=== PATIENT | female | born 1955 | race Caucasian/White ===

== ENCOUNTER 2016-11-23 12:17 | Day surgery (SDC) | payer OTHER ==
[~2016-11-23] VITALS: Ht 160 cm; Wt 81.7 kg
[~2016-11-23 12:17] MED LIST: 0.9% Sodium Chloride 1,000 ML IV SCH; Sodium Chloride LOK Flush 10 mL Syringe IV PRN; fentaNYL-PF 50 mCg/mL 2 mL Inj IVPUSH PRN
[2016-11-23] MEDS ORDERED: CHOL3000 PO (13:58)
[2016-11-23] MEDS ORDERED: OMEP20CA11 PO (13:58)
[2016-11-23 13:59] VITALS: BP 133/79; PULSE 73; RESP 16; O2SAT 99
--- NOTE | 2016-11-23 15:03 | PCM.ENDEGD ---
EGD Date of Service: Nov 23, 2016 Physician Reji Kothari MD Indication for Procedure Anemia guaiac-positive stools Post Procedure Dx & Findings: Normal upper GI Procedure Esophagogastroduodenoscopy PROCEDURE IN DETAIL: The patient was placed in left lateral decubitus position. Bite block was placed. Scope lubricated, placed in posterior pharynx, passed through the cricopharyngeus and esophagus, slowly advanced the entire length of the gastric pouch, pylorus was identified, scope passed through the pylorus and descending portion of duodenum, withdrawn in the antrum, retroflexed upon itself for view of fundus and cardia. Scope was then withdrawn through the oropharynx. Esophagus was normal without any ulcers or mass erosions. Z line was intact. Stomach appeared normal with normal fundus cardia body antrum and pylorus. There was no ulcer mass or erosions. Stomach was easily inflated and deflated abusing air. Duodenum appeared normal. Patient had normal villous structures without normal appearing folds. I advanced to distal duodenum. Obtained 5 biopsies from distal duodenum to proximal duodenum to rule out celiac disease. Impression Normal upper GI Anemia Recommendation Colonoscopy. Presedation Assessment Risks and Benefits Informed consent was obtained from the patient after all risks and benefits including but not limited to drug reaction, infection, pain, bleeding, perforation, as well as alternatives were discussed. Patient monitoring Continuous pulse oximetry, cardiac monitoring, blood pressure monitoring, IV access, and oxygen at 2L per nasal cannula. Periprocedural Fentanyl: Fentanyl 125mcg Incrementally Midazolam: Midazolam 6mg Incrementally Complications There were no periprocedural complications identified. Post Procedure Plan Post Procedure Recommendations 1. Restrict activities today. 2. Resume normal activities in the morning. 3. Resume medications. 4. GERD behavioral modification: - Avoid fatty, acidic, spicy, large meals - Do not lie down after meals - Do not eat or drink anything for at least 2 1/2 hours before going to bed at night - Discontinue tobacco and alcohol - Decrease or avoid caffeine - Avoid chocolate and mints - Decrease weight - Avoid aspirin and non steroidal anti-inflammatory agents (NSAID) such as Aleve, Advil, Mobic, Naproxen, Ibuprofen, etc 5. Add proton pump inhibitor. Take 30 minutes before 1st meal of the day. 6. Patient informed of normal post procedure side effects as bloating, drowsiness, blood streaking in the stool 7. If gastric biopsy reveal H.pylori, continue with appropriate treatment 8. If small bowel biopsy reveals celiac, continue with appropriate treatment 9. Please don't hesitate to call me with any questions Reji Kothari MD Nov 23, 2016 15:03
[2016-11-23 15:30] VITALS: BP 133/69; PULSE 72; RESP 16; O2SAT 95
[2016-11-23 15:40] VITALS: BP 127/69; PULSE 68; RESP 16; O2SAT 95
[2016-11-23 15:50] VITALS: BP 107/67; PULSE 73; RESP 16; O2SAT 96
--- NOTE | 2016-11-23 16:32 | PCM.ENDCOL ---
Colonoscopy Date of Service: Nov 23, 2016 Physician Reji Kothari MD Indication for Procedure Anemia Post Procedure Dx & Findings: Hemorrhoids Procedure Colonoscopy Prep adequate PROCEDURE IN DETAIL: After a rectal examination on this videocolonoscope was inserted patient's anal canal presents to the cecum. Landmarks were identified including the ileocecal valve and appendiceal orifice. Scope further events the terminal ileum. We advanced to about 7 - 8 cm. Terminal ileum showed normal villous structures without any ulcers mass or erosions. The mucosa of the cecum, ascending, transverse, descending, sigmoid, rectal mucosa lined with whitish, pink, smooth, glistening, normal-appearing mucosa, normal fine branching, underlying vascularity, normal haustra. The patient tolerated procedure and was transported to observation area. In the rectum retroflexion was done which showed moderate hemorrhoids anal canal was inspected carefully in the way of an hemorrhoids noted. Impression Normal TI Normal colon No source of GI bleed Recommendation Follow up in GI clinic Repeat colonoscopy 10 years if there is no family or personal history of colon cancer or polyps. Presedation Assessment Risks and Benefits Informed consent was obtained from the patient after all risks and benefits including but not limited to drug reaction, infection, pain, bleeding, perforation, as well as alternatives were discussed. Patient monitoring Continuous pulse oximetry, cardiac monitoring, blood pressure monitoring, IV access, and oxygen at 2L per nasal cannula. Complications There were no periprocedural complications identified. Post Procedure Plan Post Procedure Recommendations 1. Restrict activities today. 2. Resume normal activities in the morning. 3. Resume medications. 4. Patient informed of normal post procedure side effects as bloating, drowsiness, blood streaking in the stool. 5. average risk CRCS. If colon polyps come back as: -Hyperplastic- can repeat colonoscopy in 10 years -Tubular adenoma- repeat colonoscopy in 5 years -Tubulovillous/villous adenoma- repeat colonoscopy in 3 years -If any dysplasia- return to clinic as soon as possible 6. Please don't hesitate to call me with any questions. Reji Kothari MD Nov 23, 2016 16:32
--- NOTE | 2016-11-25 11:30 | PATH ---
SURGICAL PATHOLOGY Attending Physician:Reji Kothari M.D. CASE STATUS: Signed Out PATIENT NAME: STEVEN CANTRELL PID: [id number] : 1955 DATE COLLECTED:11/23/2016 00:00 SPECIMEN: 1: Duodenum, Biopsy 2: Colon, Biopsy CLINICAL HISTORY: 1). DUODENAL BIOPSY 2). SIGMOID COLON POLYP FINAL DIAGNOSIS: 1. Duodenal Biopsy: Changes of chronic duodenitis with focal areas of foveolar metaplasia. Negative for evidence of celiac disease. Negative for dysplasia and malignancy. 2. Sigmoid Colon Polyp: Hyperplastic polyp. ICD10 K63.5 GROSS DESCRIPTION: The specimen is received in two formalin filled containers labeled with the patient's name. 1). The specimen is sublabeled "duodenal" and consists of 3 portions of tissue which aggregate to 0.3 x 0.3 x 0.2 CM. The specimen is entirely submitted in cassette 1A. 2). The specimen is sublabeled "sigmoid colon polyp" and consists of a 0.3 x 0.3 x 0.2 CM portion of tissue which is entirely submitted in cassette 2A. 11/24/2016 [facility] ICD-9 CODES: CPT CODES: 1: 42372 2: 99242 Electronically Signed Out Rob Crowley MD [facility] [address], [place] [address] Technical component performed at [facility], [facility] [address], [address]
== END 2016-11-23 23:59 | disposition home or self-care (01) ==
LOC: END 12:17
PROVIDERS: ATTEND Internal Medicine
DX: K63.5 Polyp of colon (principal); K29.80 Duodenitis without bleeding; R19.5 Other fecal abnormalities; D64.9 Anemia, unspecified
CPT/HCPCS: 43239; 45380; 99153; G0500; J2250; J7030